=== PATIENT | female | born 2000 | race Hispanic/Latino ===

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

== ENCOUNTER 2022-06-01 21:35 | Emergency (ER) | payer MEDICAID ==
[~2022-06-01] VITALS: Ht 175.3 cm; Wt 98.9 kg
[2022-06-01] MEDS ORDERED: 0.9%NACL 1000ML 1,000 ML IV SCH (22:00)
[2022-06-01] MEDS ORDERED: FAMOTIDINE 20MG VIAL IV ONE (22:00)
[2022-06-01] MEDS ORDERED: LIDOCAINE HCL 2% VISCOUS 15 ML UDCUP PO ONE (22:00)
[2022-06-01] MEDS ORDERED: PROMETHAZINE HCL 25 MG/ML 1ML AMPULE IM SCH (22:00)
[2022-06-01] MEDS ORDERED: MAG/ALUM/SIMETH 30 ML UDCUP PO ONE (22:00)
[2022-06-01] MEDS ORDERED: ONDANSETRON 4MG INJ IVP ONE (22:00)
[2022-06-01] MEDS ORDERED: DICYCLOMINE HCL 10 MG/5 ML ML PO ONE (22:00)
[2022-06-01 22:17] LABS: BASOPHILS % (AUTO) 0.5 % (0.0-5.0); EOSINOPHILS % (AUTO) 1.7 % (0.0-8.0); HEMATOCRIT 43.2 % (36-48); LYMPHOCYTES % (AUTO) 18.3 % (21.0-51.0); MEAN CORPUSCULAR HEMOGLOBIN 30.3 pg (27.0-33.0); MEAN CORPUSCULAR HGB CONC 34.7 g/dL (32.0-36.0); MEAN CORPUSCULAR VOLUME 87.3 fL (80-100); MONOCYTES % (AUTO) 6.5 % (3.0-13.0); NEUTROPHILS % (AUTO) 72.6 % (40.0-77.0); PLATELET COUNT (AUTO) 255 K/uL (130-400); RED BLOOD CELL COUNT(AUTO) 4.95 MIL/uL (4.00-5.50); RED CELL DISTRIBUTION WIDTH 11.9 % (11.0-15.5)
[2022-06-01 22:18] LABS: APPEARANCE,URINE CLEAR (CLEAR); BILIRUBIN,URINE NEGATIVE (NEGATIVE); COLOR,URINE LIGHT-YELLOW (YELLOW); GLUCOSE, URINE (UA) NEGATIVE (NEGATIVE); KETONES,URINE NEGATIVE (NEGATIVE); LEUKOCYTE ESTERASE ,URINE 25 Leu/uL (NEGATIVE); NITRATE,URINE NEGATIVE (NEGATIVE); OCCULT BLOOD,URINE NEGATIVE (NEGATIVE); PROTEIN,URINE NEGATIVE (NEGATIVE); UROBILINOGEN,URINE 0.2 mg/dL (0.2-1.0)
[2022-06-01 22:31] LABS: BACTERIA,URINE RARE /HPF (None Seen); MUCUS,URINE RARE LPF (None Seen); RBC,URINE 0-1 /HPF (0-1); SQUAMOUS EPITHELIAL CELL,UR FEW /HPF (0-2)
[2022-06-01 22:41] LABS: CREATININE 0.6 mg/dL (0.5-1.5); POTASSIUM 3.6 mmol/L (3.5-5.1)
[2022-06-01 22:46] LABS: ALBUMIN 4.1 g/dL (3.5-5.0); TOTAL PROTEIN, SERUM 8.3 g/dL (6.0-8.3)
[2022-06-01 23:09] LABS: HCG,QUALITATIVE URINE NEGATIVE (NEGATIVE)
[2022-06-01] MEDS ORDERED: CEPH500B PO (23:21)
[2022-06-01] MEDS ORDERED: ONDA4TAB10 PO (23:21)
[2022-06-01] MEDS ORDERED: CEFTRIAXONE 1G VIAL IVP ONE (23:30)
[2022-06-01 23:32] VITALS: BP 129/62
== END 2022-06-02 00:10 | disposition home or self-care (01) ==
LOC: EDH 21:35
DX: N39.0 Urinary tract infection, site not specified (principal); E86.0 Dehydration; R11.2 Nausea with vomiting, unspecified; Z79.899 Other long term (current) drug therapy
CPT/HCPCS: 99285; 96374; 76705; 96375; 96361; 80053; 83690; 85025; 81001; 81025; 36415; 96372; J7030; J2550; J0696; J2405; S0028; J3490

== ENCOUNTER 2025-05-26 20:32 | Emergency (ER) | payer SELFPAY ==
[~2025-05-26] VITALS: Ht 180.3 cm; Wt 117.0 kg
[~2025-05-26 20:32] MED LIST changes: +CEPH500B PO; +ONDA-243 PO; -ONDA4TAB10 PO
--- NOTE | 2025-05-26 20:58 | ERN ---
ED Note History of Present Illness Stated Complaint: C/O HEADACHE,HIGH B/P, DIZZINESS, N X V Chief Complaint: Headache Time Seen by MD: 20:41 Dictation: This is a 24-year-old female who presented to the emergency room with complaints of nausea vomitings and dizziness. She apparently had slightly higher blood pressure at home and she also reported a generalized headache. She had chills but no documented fever at home. No abdominal pain no other sick contacts. No history of constipation. Most of her symptoms started 24 hours ago. Temperature a 100.8 pulse 107 respirations 20 blood pressure 138/91 with a pulse oximetry of 98% on room air She does have a history of a kidney stone that was diagnosed a month ago at [facility]. Allergies: Coded Allergies: No Known Allergies (Unverified Allergy, Unknown, 08/07/21) Home Meds Active Scripts Ondansetron (Ondansetron Odt) 4 Mg Tab.rapdis, 4 MG PO Q6HPRN PRN for nausea, #16 TAB 0 Refills Prov:SABI FONG MD 05/26/25 Nitrofurantoin Macrocrystal (Nitrofurantoin) 100 Mg Capsule, 1 CAP PO BID for 7 Days, #14 CAP 0 Refills Prov:SABI FONG MD 05/26/25 Ondansetron (Ondansetron Odt) 4 Mg Tab.rapdis, 4 MG PO TID, #21 TAB Prov:LELA VELÁZQUEZ 06/01/22 Cephalexin Monohydrate (Keflex) 500 Mg Cap, 500 MG PO TID for 7 Days, #21 CAP Prov:LELA VELÁZQUEZ 06/01/22 Dicyclomine HCl (Bentyl) 20 Mg Tab, 20 MG PO QIDP, #28 TAB Prov:LELA VELÁZQUEZ 08/07/21 Ondansetron (Ondansetron Odt) 4 Mg Tab.rapdis, 4 MG PO QID, #28 TAB Prov:LELA VELÁZQUEZ 08/07/21 Past Medical History Past Medical History: No Pertinent History Surgical History: None Family History: Negative Social History: Negative, Lives with family History: Not Applicable LMP: Apr 14, 2025 RN Note Reviewed/Agreed w/PFSH: Yes Review of System Dictation Constitutional: Negative for fever,chills, and weight loss positive for dizziness Eyes: Negative for injury, pain,redness, and discharge ENT: Negative for injury,pain or swelling Cardiovascular: Negative for chest pain, palpitations, and edema Respiratory: Negative for shortness of breath, cough, and wheezing, Abdomen/GI: Negative for abdominal pain,diarrhea, and constipation positive for nausea, vomiting, Back: Negative for injury and pain : Negative for injury, bleeding and discharge MS/Extremity: Negative for injury and deformity Skin: Negative for rash, and discoloration Neuro: Negative for headache, weakness, numbness, tingling, and seizure Psych: Negative for suicide ideation, homicidal ideation, and hallucinations Initial Vital Sign VS Vital Signs Date Time Temp Pulse Resp B/P (MAP) Pulse Ox O2 Delivery O2 Flow Rate FiO2 05/26/25 20:39 100.8 107 20 135/91 98 Room Air 05/26/25 22:41 0 21 Physical Exam Dictation General: awake, alert, NAD morbidly obese Head/Face: Normocephalic, atraumatic Eyes: PERRL, EOMI, vision at baseline ENT: oral cavity clear, TMs clear, no signs of infection Neck: Trachea midline, supple, no nuchal rigidity Cardiovascular: RRR, normal S1/S2, No MRGs, no JVD Respiratory: CTAB, no respiratory distress, No rales or wheezes Abdomen: Soft, non-tender, non-distended, normal bowel sounds, no guarding or rebound. Skin: Warm, dry, normal turgor, no rash MS/Extremity: Pulses equal, no cyanosis, neurovascular intact, FROM Neuro: COAx4, GCS 15, strength 5/5, CN 2-12 intact, normal cerebellar exam, normal gait, Psych: Normal behavior, mood, and affect normal Extremities-trace edema without any palpable cords, Homans sign is negative Results (Laboratory/Radiology) Laboratory/Radiology Laboratory Tests Test 05/26/25 20:50 05/26/25 21:00 05/26/25 22:30 White Blood Count 11.5 K/uL (4.8-10.8) H Red Blood Count 4.92 MIL/uL (4.00-5.50) Hemoglobin 14.3 g/dL (12.0-16.0) Hematocrit 42.5 % (36-48) Mean Corpuscular Volume 86.4 fL (79-99) Mean Corpuscular Hemoglobin 29.1 pg (27.0-33.0) Mean Corpuscular Hemoglobin Concent 33.6 g/dL (32.0-36.0) Red Cell Distribution Width 12.2 % (11.0-15.5) Platelet Count 283 K/uL (130-400) Mean Platelet Volume 9.9 fL (7.5-10.5) Immature Granulocyte % (Auto) 0.8 % (0-1) Neutrophils (%) (Auto) 72.8 % (40.0-77.0) Lymphocytes (%) (Auto) 18.2 % (21.0-51.0) L Monocytes (%) (Auto) 6.2 % (3.0-13.0) Eosinophils (%) (Auto) 1.7 % (0.0-8.0) Basophils (%) (Auto) 0.3 % (0.0-5.0) Neutrophils # (Auto) 8.4 K/uL (1.8-7.7) H Lymphocytes # (Auto) 2.1 K/uL (1.0-4.8) Monocytes # (Auto) 0.7 K/uL (0.1-1.0) Eosinophils # (Auto) 0.20 K/uL (0.00-0.70) Basophils # (Auto) 0.04 K/uL (0.00-0.20) Absolute Immature Granulocyte (auto 0.09 K/uL (0-1) Nucleated Red Blood Cells 0.0 % (0.0-0.19) Sodium Level 140 mmol/L (136-145) Potassium Level 3.7 mmol/L (3.5-5.1) Chloride Level 102 mmol/L (101-111) Carbon Dioxide Level 29 mmol/L (21-32) Blood Urea Nitrogen 8 mg/dL (7-18) Creatinine 0.6 mg/dL (0.5-1.0) Glomerular Filtration Rate Calc 130 mL/min (>90) Random Glucose 87 mg/dL (70-105) Total Calcium 9.0 mg/dL (8.5-10.1) Human Chorionic Gonadotropin, Quant 0 mIU/mL (0-5) Urine Color COLORLESS (YELLOW) Urine Appearance CLEAR (CLEAR) Urine pH 6.5 (5.0-8.0) Urine Specific [place] 1.003 (1.001-1.031) Urine Protein NEGATIVE mg/dL (NEGATIVE) Urine Glucose (UA) NEGATIVE mg/dL (NEGATIVE) Urine Ketones NEGATIVE mg/dL (NEGATIVE) Urine Occult Blood NEGATIVE (NEGATIVE) Urine Nitrate NEGATIVE (NEGATIVE) Urine Bilirubin NEGATIVE mg/dL (NEGATIVE) Urine Urobilinogen 0.2 mg/dL (0.2-1.0) Urine Leukocyte Esterase 25 Ori/uL (NEGATIVE) H Urine RBC 6-10 /HPF (0-1) H Urine WBC 11-25 /HPF (0-1) H Urine Squamous Epithelial Cells RARE /HPF (0-2) Urine Non-Squamous Epithelial Cells <1 /HPF (0-2) Urine Bacteria MOD /HPF (None Seen) Urine Opiates Screen NEGATIVE (NEGATIVE) Urine Barbiturates Screen NEGATIVE (NEGATIVE) Urine Phencyclidine Screen NEGATIVE (NEGATIVE) Urine Amphetamines Screen NEGATIVE (NEGATIVE) Urine Benzodiazepines Screen NEGATIVE (NEGATIVE) Urine Cocaine Screen NEGATIVE (NEGATIVE) Urine Marijuana (THC) Screen NEGATIVE (NEGATIVE) Influenza Type A Antigen Negative For Type A Influenza Type B Antigen Negative For Type B SARS-CoV-2 Antigen (Rapid) PRESUMPTIVE NEGATIVE Group A Streptococcus Rapid negative (NEGATIVE) Labs Reviewed?: Yes ED Course ED Course Orders Procedure Category Date Status Time Cbc With Differential LAB 05/26/25 Complete 20:41 Basic Metabolic Panel LAB 05/26/25 Complete 20:41 Hcg,Quantitative LAB 05/26/25 Complete 20:41 Urinalysis Profile LAB 05/26/25 Complete 20:41 Drug Screen Urine LAB 05/26/25 Complete 20:41 Culture Urine ABDULKADIR 05/26/25 In Process 21:18 Covid19 (Sars Antigen LAB 05/26/25 Complete Rapid) 21:22 Influenza Type A & B, LAB 05/26/25 Complete Rapid 21:22 Rapid (Group A Strep) LAB 05/26/25 Complete 21:22 0.9% Nacl 500ml PHA 05/26/25 Complete Iv.Soln (Ns 500ml 21:30 Ceftriaxone 1g Vial PHA 05/26/25 Complete (Rocephine 1g Inj) 21:30 Ondansetron 4mg Inj PHA 05/26/25 Complete (Zofran 4mg Inj) 21:30 Ketorolac PHA 05/26/25 Complete Tromethamine 30mg/Ml 23:30 Current Medications Medications (Trade) Dose Ordered Sig/Pascual Route PRN Reason Start Time Stop Time Status Last Admin Dose Admin Ceftriaxone Sodium (ROCEphine 1G INJ) 1 gm ONCE ONCE IVPB 05/26/25 21:30 05/26/25 21:31 DC 05/26/25 22:31 Ketorolac Tromethamine (toRADol) 30 mg ONCE ONCE IVP 05/26/25 23:30 05/26/25 23:31 DC 05/26/25 23:46 Ondansetron HCl (zoFRAN 4MG INJ) 4 mg ONCE ONCE IVP 05/26/25 21:30 05/26/25 21:32 DC 05/26/25 22:31 Sodium Chloride 500 ml @ 0 mls/hr ONCE ONCE IV 05/26/25 21:30 05/26/25 21:31 DC 05/26/25 22:31 Vital Signs Date Time Temp Pulse Resp B/P (MAP) Pulse Ox O2 Delivery O2 Flow Rate FiO2 05/26/25 23:48 99.1 99 16 132/72 99 Room Air* 0 21 05/26/25 22:41 99.7 98 16 139/68 98 Room Air* 0 21 05/26/25 20:39 100.8 107 20 135/91 98 Room Air We will perform diagnostic labs, and administer medications according to the patient's complaint. Once the results are available, will review and personally interpreted the labs to rule out any acute life-threatening emergency the trach require immediate intervention and treatment. I will then re-evaluate the patient after treatment and diagnostic exams have return to determine whether the patient requires any further testing, can safely be discharged home or need further admission to hospital for additional treatment and evaluation. Medical Decision Making MDM Differential diagnosis: Influenza, gastroenteritis, COVID infection, streptococcal pharyngitis, sepsis This is a 24-year-old female who presented to the emergency room with complaints of nausea vomitings and dizziness. She apparently had slightly higher blood pressure at home and she also reported a generalized headache. She had chills but no documented fever at home. No abdominal pain no other sick contacts. No history of constipation. Most of her symptoms started 24 hours ago. Temperature a 100.8 pulse 107 respirations 20 blood pressure 138/91 with a pulse oximetry of 98% on room air She does have a history of a kidney stone that was diagnosed a month ago at [facility]. 9:15 p.m. labs reviewed CBC showed a white count of 11.5 hemoglobin 14.3 platelets 283. BNP 7 is normal urine drug screen is unremarkable. Urinalysis showed positive leuko esterase increased WBCs suggestive of a UTI. Patient also had some occult hematuria. Urine test is negative IV fluids initiated symptomatic management. Swabs for flu COVID strep are still pending 11:10 p.m. swabs are still pending 12:00 a.m.-nasopharyngeal swabs for flu COVID and strep were all negative. Patient received IV fluids and also Rocephin. I updated the patient and her mother on all the lab test results and likely she had gastroenteritis along with a UTI. Counseled her extensively on weight loss diet and exercise. She will follow up with her primary care physician in a few days Rationale: Tests considered and ordered secondary to shared decision making include: Previous outside records reviewed: Old ER visits. Risk of complication and/or morbidity or mortality of patient management: None Medications-Per medication reconciliation Need for hospitalization: Patient does not meet criteria for hospitalization. Need for emergency major/minor surgery: No There are no social concerns with this patient. Prescription drug management Prescriptions will include symptomatic care Patient's prior external medical records from other ER visits were reviewed by me as indicated. Prior testing and results from previous visits were reviewed. Prior tests were taken into account with medical decision making and resource utilization, independent historian/historians were used to obtain complete medical history. I independently interpreted the test that were performed, results were reviewed by me and considered findings on radiology if ordered. Medical management and examination interpretation discussions were had by me with other qualified healthcare professionals as indicated for the patient's care. Problem List Problem List: (1) Nausea and vomiting (2) Dehydration (3) Urinary tract infection (4) History of nephrolithiasis DX & DISP Disposition: Discharge Departure Impression: Primary Impression: Urinary tract infection Additional Impressions: Nausea and vomiting, Dehydration, History of nephrolithiasis Condition: Stable Scripts Ondansetron (Ondansetron Odt) 4 Mg Tab.rapdis 4 MG PO Q6HPRN PRN for nausea, #16 TAB 0 Refills Prov: SABI FONG MD 05/26/25 Nitrofurantoin Macrocrystal (Nitrofurantoin) 100 Mg Capsule 1 CAP PO BID for 7 Days, #14 CAP 0 Refills Prov: SABI FONG MD 05/26/25 Additional Instructions: Patient and the caregiver have been informed of all the diagnostic tests and the imaging conducted during the today's visit to the emergency room and has verbalized understanding of the results I have personally reviewed and interpreted all diagnostic exams performed here in the ER today as well as the vital signs documented by the nursing staff. The patient is now being discharged to home and should follow up with the primary care physician or the specialist as directed by the ER staff. Follow-up with primary care provider in 1 to 2 days. Take medications as directed here in the emergency room. Okay to continue home medications unless otherwise discussed during your visit in the emergency room today. Return to your nearest emergency room if symptoms worsen or if there is no improvement. Call 911 if you need immediate assistance. Take Tylenol or Motrin [id number] as needed and if no contraindications are present. Increase oral hydration. A wound culture or urine culture was ordered here in the emergency room department please follow-up with primary care provider and advise them to get repeat ports from our facility. If you had any Vince wrap/splints that were applied here, please do not remove them until you see your primary care or specialty. Referrals: SELF,REFERRAL (PCP) SABI FONG MD May 26, 2025 20:58
[2025-05-26 20:59] LABS: IMMATURE GRANULOCYTE ABSOLUTE 0.09 K/uL (0-1); NUCLEATED RED BLOOD CELLS 0.0 % (0.0-0.19); PLATELET COUNT (AUTO) 283 K/uL (130-400); RED BLOOD CELL COUNT(AUTO) 4.92 MIL/uL (4.00-5.50); RED CELL DISTRIBUTION WIDTH 12.2 % (11.0-15.5); WHITE BLOOD COUNT (AUTO) 11.5 K/uL (4.8-10.8)
[2025-05-26 21:14] LABS: CREATININE 0.6 mg/dL (0.5-1.0); GLOMERULAR FILTR. RATE CALC 130.0 mL/min (>90); GLUCOSE,RANDOM 87.0 mg/dL (70-105); SODIUM SERUM 140.0 mmol/L (136-145); UREA NITROGEN, BLOOD 8.0 mg/dL (7-18)
[2025-05-26 21:15] LABS: APPEARANCE,URINE CLEAR (CLEAR); GLUCOSE, URINE (UA) NEGATIVE (NEGATIVE); LEUKOCYTE ESTERASE ,URINE 25 Leu/uL (NEGATIVE); NITRATE,URINE NEGATIVE (NEGATIVE); OCCULT BLOOD,URINE NEGATIVE (NEGATIVE)
[2025-05-26 21:16] LABS: ADD UA MICROSCOPIC YES
[2025-05-26 21:17] LABS: NON-SQUAMOUS EPITHELIAL CELL <1 /HPF (0-2); SQUAMOUS EPITHELIAL CELL,UR RARE /HPF (0-2)
[2025-05-26 21:18] LABS: AMPHET/METH SCREEN,URINE NEGATIVE (NEGATIVE); BARBITURATE SCREEN, URINE NEGATIVE (NEGATIVE); CANNABINOID SCREEN,URINE NEGATIVE (NEGATIVE); COCAINE SCREEN,URINE NEGATIVE (NEGATIVE)
[2025-05-26 21:25] LABS: HCG,QUANTITATIVE 0.0 mIU/mL (0-5)
[2025-05-26] MEDS: 0.9% NACL 500ML IV.SOLN 500 ML IV ONE (22:31)
[2025-05-26 22:53] LABS: RAPID GROUP A STREP negative (NEGATIVE)
--- NOTE | 2025-05-26 23:03 | NUR ---
TRANSFERED CARE TO [facility] AT THIS TIME
[2025-05-26] MEDS ORDERED: NITR100C PO (23:07)
[2025-05-26 23:08] LABS: INFLUENZA TYPE A Negative For Type A (NEGATIVE); INFLUENZA TYPE B Negative For Type B (NEGATIVE)
[2025-05-26] MEDS ORDERED: ONDA-243 PO (23:08)
[2025-05-26 23:09] LABS: COVID19 (SARS ANTIGEN RAPID) PRESUMPTIVE NEGATIVE (NEGATIVE)
[2025-05-26 23:48] VITALS: BP 132/72; PULSE 99; RESP 16; TEMP 99.2; O2SAT 99
== END 2025-05-26 23:57 | disposition home or self-care (01) ==
LOC: EDH 20:32
DX: N39.0 Urinary tract infection, site not specified (principal); R11.2 Nausea with vomiting, unspecified; E86.0 Dehydration; R42 Dizziness and giddiness; Z20.822 Contact with and (suspected) exposure to COVID-19; Z87.442 Personal history of urinary calculi
CPT/HCPCS: 99284; 96374; 96375; 87426; 80048; 80305; 84702; 85025; 87086; 87880; 87804 ×2; 81001; 36415; J1885; J7040; J0696; J2405